=== PATIENT | male | born 1990 | race Hispanic/Latino ===

== ENCOUNTER 2016-10-24 18:54 | Emergency (ER) ==
[~2016-10-24] VITALS: Ht 177.8 cm; Wt 83.5 kg
[2016-10-24 18:54] VITALS: BP 145/76
== END 2016-10-24 19:54 | disposition left against medical advice (07) ==
LOC: M ED 18:54
DX: E86.0 Dehydration (principal); Z53.29 Procedure and treatment not carried out because of patient's decision for other reasons

== ENCOUNTER → 2016-12-11 | Outpatient (REF) | payer SELFPAY ==
[2016-12-11 18:25] LABS: IMMOTILITY 25 %; NON PROGRESSIVE MOTILITY (c) 13 %; PROGRESSIVE MOTILITY (a) 62 % (>=32); TOTAL MOTILITY 75 % (>=40)
[2016-12-11 18:26] LABS: % NORMAL FORMS 16 % (>=4); SPERM# 84.1 M/Ejac (>=39); TOTAL FUNCTIONAL 17.3 M/Ejac.; TOTAL PROGRESSIVE SPERM 52.1 M/Ejac.
== END ==
LOC: M LAB REF 17:52
PROVIDERS: ATTEND Physician Assistant Medical
DX: N46.9 Male infertility, unspecified (principal)

== ENCOUNTER 2017-10-06 19:55 | Emergency (ER) | payer OTHER, SELFPAY ==
[2017-10-06] MEDS: AMOXICILLIN 500 MG CAP PO (21:04)
== END 2017-10-06 21:07 | disposition home or self-care (01) ==
LOC: M ED 19:55
DX: J02.0 Streptococcal pharyngitis (principal)
CPT/HCPCS: 87880

== ENCOUNTER 2018-01-23 22:28 | Emergency (ER) | payer OTHER ==
[2018-01-23] MEDS: IBUPROFEN 600 MG TAB PO (22:52)
== END 2018-01-23 23:34 | disposition home or self-care (01) ==
LOC: M ED 22:28
DX: S86.912A Strain of unspecified muscle(s) and tendon(s) at lower leg level, left leg, initial encounter (principal); X50.9XXA Other and unspecified overexertion or strenuous movements or postures, initial encounter; Y92.59 Other trade areas as the place of occurrence of the external cause; Y99.0 Civilian activity done for income or pay; Z79.899 Other long term (current) drug therapy
CPT/HCPCS: 73564

== ENCOUNTER 2018-07-22 19:43 | Emergency (ER) | payer OTHER ==
[~2018-07-22] VITALS: Ht 175.3 cm; Wt 84.1 kg
[~2018-07-22 19:43] MED LIST: ACE65ERTAB PO; ADDE20CA3 PO; AMOX500C PO; IBUP-1022 PO; THERPAK PO
[2018-07-22 19:44] VITALS: BP 138/70
[2018-07-22] MEDS ORDERED: GI COCKTAIL 50ML BTL(HYOSCYAMINE/MAALOX/LIDOCAINE VISCOUS)(1:3:1) PO ONE (20:45)
[2018-07-22] MEDS ORDERED: PROT1TAB2 PO (21:55)
[2018-07-22] MEDS ORDERED: CARA1TAB6 PO (21:55)
== END 2018-07-22 22:14 | disposition home or self-care (01) ==
LOC: M ED 19:43
DX: K21.0 Gastro-esophageal reflux disease with esophagitis (principal); R19.7 Diarrhea, unspecified; Z87.19 Personal history of other diseases of the digestive system; F90.9 Attention-deficit hyperactivity disorder, unspecified type; Z79.899 Other long term (current) drug therapy

== ENCOUNTER 2018-08-05 12:15 | Day surgery (SDC) | payer OTHER ==
[~2018-08-05] VITALS: Ht 175.3 cm; Wt 82.1 kg
[~2018-08-05 12:15] MED LIST changes: +CARA1TAB6 PO; +PROT1TAB2 PO
[2018-08-05] MEDS ORDERED: NS 1,000 ML IV ONE (13:00)
[2018-08-05] MEDS ORDERED: PROPOFOL 200 MG/20 ML VIAL As Ordered ONE (13:29)
[2018-08-05] MEDS ORDERED: LIDOCAINE 2% INJ 100 MG/5 ML SDV (FOR ANES.) As Ordered ONE (13:29)
--- NOTE | 2018-08-05 14:04 | ROOR ---
Patient Name: Phill Mehta Procedure Date: 08/05/2018 1:22 PM Date of : 1990 Age: 27 Room: [facility] Gender: Male Note Status: Finalized Procedure: Upper GI endoscopy Indications: Epigastric abdominal pain, Dyspepsia, Dysphagia Providers: Moises Barreto MD Referring MD: ANDRIA CARDENAS MD Requesting Provider: Medicines: Monitored Anesthesia Care Complications: No immediate complications. Procedure: Pre-Anesthesia Assessment: - Prior to the procedure, a History and Physical was performed, and patient medications and allergies were reviewed. The patient is competent. The risks and benefits of the procedure and the sedation options and risks were discussed with the patient. All questions were answered and informed consent was obtained. Patient identification and proposed procedure were verified by the physician, the nurse and the anesthesiologist in the procedure room. Mental Status Examination: alert and oriented. Airway Examination: normal oropharyngeal airway and neck mobility. Respiratory Examination: clear to auscultation. CV Examination: normal. Prophylactic Antibiotics: The patient does not require prophylactic antibiotics. Prior Anticoagulants: The patient has taken no previous anticoagulant or antiplatelet agents. ASA Grade Assessment: I - A normal, healthy patient. After reviewing the risks and benefits, the patient was deemed in satisfactory condition to undergo the procedure. The anesthesia plan was to use monitored anesthesia care (MAC). Immediately prior to administration of medications, the patient was re-assessed for adequacy to receive sedatives. The heart rate, respiratory rate, oxygen saturations, blood pressure, adequacy of pulmonary ventilation, and response to care were monitored throughout the procedure. The physical status of the patient was re-assessed after the procedure. The Endoscope was introduced through the mouth, and advanced to the second part of duodenum. The upper GI endoscopy was accomplished without difficulty. The patient tolerated the procedure well. Findings: No endoscopic abnormality was evident in the esophagus to explain the patient's complaint of dysphagia. Biopsies were obtained from the proximal and distal esophagus with cold forceps for histology of suspected eosinophilic esophagitis. Verification of patient identification for the specimen was done by the physician and nurse using the patient's name, date and medical record number. Estimated blood loss was minimal. The Z-line was irregular and was found at the gastroesophageal junction. Patchy mild inflammation characterized by erythema, friability and granularity was found in the gastric body and in the gastric antrum. Biopsies were taken with a cold forceps for Helicobacter pylori testing. No gross lesions were noted in the duodenal bulb, in the second portion of the duodenum and in the third portion of the duodenum. Biopsies for histology were taken with a cold forceps for evaluation of celiac disease. Impression: - No endoscopic esophageal abnormality to explain patient's dysphagia. Biopsied. - Z-line irregular, at the gastroesophageal junction. - Gastritis. Biopsied. - No gross lesions in the duodenal bulb, in the second portion of the duodenum and in the third portion of the duodenum. Biopsied. Recommendation: - Patient has a contact number available for emergencies. The signs and symptoms of potential delayed complications were discussed with the patient. Return to normal activities tomorrow. Written discharge instructions were provided to the patient. - Resume previous diet. - Continue present medications. - Await pathology results. - Follow an antireflux regimen. - Return to GI clinic in [facility] (address [address], [address], [place], [facility]) in 4 -- 6 weeks. Please call GI clinic @ [phone] for apppointment date and time. - Return to primary care physician. Moises Barreto MD Moises Barreto MD 08/05/2018 2:04:23 PM Electronically signed by Moises Barreto MD Number of Addenda: 0 Note Initiated On: 08/05/2018 1:22 PM Estimated Blood Loss: Estimated blood loss was minimal.
--- NOTE | 2018-08-05 14:14 | ROOR ---
Patient Name: Phill Mehta Procedure Date: 08/05/2018 1:23 PM Date of : 1990 Age: 27 Room: [facility] Gender: Male Note Status: Finalized Procedure: Colonoscopy Indications: Chronic diarrhea Providers: Moises Brareto MD Referring MD: ANDRIA CARDENAS MD Requesting Provider: Medicines: Monitored Anesthesia Care Complications: No immediate complications. Procedure: Pre-Anesthesia Assessment: - Prior to the procedure, a History and Physical was performed, and patient medications and allergies were reviewed. The patient is competent. The risks and benefits of the procedure and the sedation options and risks were discussed with the patient. All questions were answered and informed consent was obtained. Patient identification and proposed procedure were verified by the physician, the nurse and the anesthesiologist in the procedure room. Mental Status Examination: alert and oriented. Airway Examination: normal oropharyngeal airway and neck mobility. Respiratory Examination: clear to auscultation. CV Examination: normal. Prophylactic Antibiotics: The patient does not require prophylactic antibiotics. Prior Anticoagulants: The patient has taken no previous anticoagulant or antiplatelet agents. ASA Grade Assessment: I - A normal, healthy patient. After reviewing the risks and benefits, the patient was deemed in satisfactory condition to undergo the procedure. The anesthesia plan was to use monitored anesthesia care (MAC). Immediately prior to administration of medications, the patient was re-assessed for adequacy to receive sedatives. The heart rate, respiratory rate, oxygen saturations, blood pressure, adequacy of pulmonary ventilation, and response to care were monitored throughout the procedure. The physical status of the patient was re-assessed after the procedure. The Colonoscope was introduced through the anus and advanced to the terminal ileum, with identification of the appendiceal orifice and IC valve. The colonoscopy was performed without difficulty. The patient tolerated the procedure well. The quality of the bowel preparation was good. The terminal ileum, ileocecal valve, appendiceal orifice, and rectum were photographed. Scope insertion time was 3 minutes. Scope withdrawal time was 7 minutes. The total duration of the procedure was 10 minutes. Findings: The perianal and digital rectal examinations were normal. The terminal ileum appeared normal. A 5 mm polyp was found in the transverse colon. The polyp was sessile. The polyp was removed with a cold biopsy forceps. Resection and retrieval were complete. Verification of patient identification for the specimen was done by the physician and nurse using the patient's name, date and medical record number. Estimated blood loss was minimal. Normal mucosa was found in the entire colon. Biopsies for histology were taken with a cold forceps from the right colon, left colon and rectosigmoid colon for evaluation of microscopic colitis. Non-bleeding external and internal hemorrhoids were found during retroflexion. The hemorrhoids were small. Impression: - The examined portion of the ileum was normal. - One 5 mm polyp in the transverse colon, removed with a cold biopsy forceps. Resected and retrieved. - Normal mucosa in the entire examined colon. Biopsied. - Non-bleeding external and internal hemorrhoids. Recommendation: - Patient has a contact number available for emergencies. The signs and symptoms of potential delayed complications were discussed with the patient. Return to normal activities tomorrow. Written discharge instructions were provided to the patient. - High fiber diet. - Continue present medications. - Await pathology results. - Repeat colonoscopy in 5-10 years for surveillance based on pathology results. - Return to GI clinic in [facility] (address [address], [place], [facility]) in 4 -- 6 weeks. Please call GI clinic @ [phone] for apppointment date and time. - Return to primary care physician. Moises Barreto MD Moises Barreto MD 08/05/2018 2:14:11 PM Electronically signed by Moises Barreto MD Number of Addenda: 0 Note Initiated On: 08/05/2018 1:23 PM Estimated Blood Loss: Estimated blood loss was minimal.
[2018-08-05 14:30] VITALS: BP 126/61
== END 2018-08-05 14:42 | disposition home or self-care (01) ==
LOC: M OPP 12:15
PROVIDERS: ATTEND Internal Medicine Gastroenterology
DX: K63.5 Polyp of colon (principal); K64.8 Other hemorrhoids; K22.8 Other specified diseases of esophagus; K29.70 Gastritis, unspecified, without bleeding; R19.7 Diarrhea, unspecified; R10.13 Epigastric pain; R13.10 Dysphagia, unspecified

== ENCOUNTER → 2018-09-16 | Outpatient (REF) | payer OTHER | LOC: M SFHCLERA 20:05 | PROVIDERS: ATTEND Physician Assistant | DX: J02.9 Acute pharyngitis, unspecified (principal) ==

== ENCOUNTER 2020-10-29 00:51 | Emergency (ER) | payer OTHER ==
[~2020-10-29] VITALS: Ht 175.3 cm; Wt 81.8 kg
[2020-10-29 00:52] VITALS: BP 140/81
[2020-10-29] MEDS ORDERED: LEXA1TAB PO (01:01)
[2021-04-12] MEDS ORDERED: AMPH1CAP15 PO (13:17)
[2021-04-12] MEDS ORDERED: LEXA1TAB2 PO (13:17)
[2021-04-12] MEDS ORDERED: ADDE15CA3 PO (13:22)
[2021-04-12] MEDS ORDERED: [UNRECOGNIZED DRUG - CODE] PO (13:22)
== END 2020-10-29 01:45 | disposition left against medical advice (07) ==
LOC: M ED 00:51
DX: Z53.21 Procedure and treatment not carried out due to patient leaving prior to being seen by health care provider (principal)

== ENCOUNTER 2021-02-22 12:03 | Emergency (ER) | payer OTHER ==
[~2021-02-22] VITALS: Ht 175.3 cm; Wt 88.3 kg
[~2021-02-22 12:03] MED LIST changes: +LEXA1TAB PO
[2021-02-22] MEDS ORDERED: MODA100T13 PO (13:17)
[2021-02-22 17:35] LABS: BASO % 0.3 % (0.0-1.0); EOS # 0.1 10^3/uL (0.0-0.5); EOS % 1.3 % (0.0-3.0); HEMATOCRIT 47.9 % (42.0-52.0); HEMOGLOBIN 16.1 g/dl (13.5-17.5); LYMPH # 1.7 10^3/uL (1.5-5.0); LYMPH % 27.9 % (24.0-44.0); MEAN CORPUSCULAR HEMOGLOBIN 30.6 pg (27.0-33.0); MEAN CORPUSCULAR HGB CONC 33.6 g/dl (32.0-36.5); MEAN CORPUSCULAR VOLUME 90.9 fl (80.0-96.0); MONO # 0.5 10^3/uL (0.0-0.8); MONO % 7.7 % (2.0-8.0); NEUTROPHILS # 3.7 10^3/uL (1.5-8.5); NEUTROPHILS % 62.6 % (36.0-66.0); PLATELET COUNT, AUTOMATED 269 10^3/uL (150-450); RED BLOOD COUNT 5.27 10^6/uL (4.30-6.10)
[2021-02-22] MEDS ORDERED: ISOVUE-370 76% 100ML VIAL As Ordered ONE (17:44)
[2021-02-22 17:58] LABS: ALBUMIN 4.1 GM/DL (3.2-5.2); BILIRUBIN,DIRECT 0.2 MG/DL (0.0-0.2); BILIRUBIN,TOTAL 0.5 MG/DL (0.2-1.0); TOTAL PROTEIN 7.6 GM/DL (6.4-8.2)
[2021-02-22 18:09] LABS: RSV AMPLIFICATION NEGATIVE (NEGATIVE)
[2021-02-22 19:52] VITALS: BP 136/80
[2021-02-22] MEDS ORDERED: PYLE1CAP PO (19:55)
[2021-04-12] MEDS ORDERED: AMPH1CAP15 PO (13:17)
[2021-04-12] MEDS ORDERED: LEXA1TAB2 PO (13:17)
[2021-04-12] MEDS ORDERED: [UNRECOGNIZED DRUG - CODE] PO (13:22)
[2021-04-12] MEDS ORDERED: ADDE15CA3 PO (13:22)
== END 2021-02-22 20:15 | disposition home or self-care (01) ==
LOC: M ED 12:03
DX: R10.31 Right lower quadrant pain (principal); R06.02 Shortness of breath; K76.0 Fatty (change of) liver, not elsewhere classified; Z86.19 Personal history of other infectious and parasitic diseases; R94.5 Abnormal results of liver function studies; Z79.899 Other long term (current) drug therapy
CPT/HCPCS: 36415; 71046; 74177; 80047; 80076; 81001; 83605; 83690; 84484; 85025; 87631; 93005; 99284; Q9967

== ENCOUNTER 2021-04-18 22:14 | Emergency (ER) | payer OTHER ==
[~2021-04-18] VITALS: Ht 175.3 cm; Wt 87.3 kg
[2021-04-18 22:14] VITALS: BP 126/73
[~2021-04-18 22:14] MED LIST changes: +ADDE15CA3 PO; +AMPH1CAP15 PO; +LEXA1TAB2 PO; +MODA100T13 PO; +PYLE1CAP PO; +[UNRECOGNIZED DRUG - CODE] PO
== END 2021-04-19 00:09 | disposition left against medical advice (07) ==
LOC: M ED 22:14
DX: Z53.21 Procedure and treatment not carried out due to patient leaving prior to being seen by health care provider (principal)

== ENCOUNTER 2021-04-22 11:59 | Day surgery (SDC) | payer OTHER ==
[~2021-04-22] VITALS: Ht 175.3 cm; Wt 86.2 kg
[~2021-04-22 11:59] MED LIST changes: +NS 1,000 ML IV ONE
[2021-04-22] MEDS ORDERED: LIDOCAINE VISCOUS 2% SOLN 15ML UDC As Ordered ONE (14:36)
[2021-04-22] MEDS ORDERED: LIDOCAINE 2% 100MG/5ML SDV (FOR ANES.) As Ordered ONE (14:48)
[2021-04-22] MEDS ORDERED: propofoL 200 MG/20 ML VIAL As Ordered ONE (14:48)
[2021-04-22 15:06] VITALS: BP 104/59
== END 2021-04-22 15:12 | disposition home or self-care (01) ==
LOC: M OPP 11:59
PROVIDERS: ATTEND Internal Medicine Gastroenterology
DX: K29.70 Gastritis, unspecified, without bleeding (principal); R12 Heartburn; Z79.899 Other long term (current) drug therapy

== ENCOUNTER 2021-06-07 06:27 | Emergency (ER) | payer OTHER ==
[~2021-06-07] VITALS: Ht 175.3 cm; Wt 86.4 kg
[~2021-06-07 06:27] MED LIST changes: -NS 1,000 ML IV ONE
[2021-06-07] MEDS ORDERED: LEXA1TAB2 PO (06:40)
[2021-06-07] MEDS ORDERED: METOCLOPRAMIDE INJ 10MG/2ML VIAL (J2765 PER 1) IV ONE (07:25)
[2021-06-07] MEDS ORDERED: NS 1,000 ML IV ONE (07:25)
[2021-06-07 08:05] LABS: BASO % 0.3 % (0.0-1.0); EOS # 0.1 10^3/uL (0.0-0.5); EOS % 1.6 % (0.0-3.0); HEMATOCRIT 45.1 % (42.0-52.0); HEMOGLOBIN 15.2 g/dl (13.5-17.5); LYMPH # 1.8 10^3/uL (1.5-5.0); LYMPH % 28.7 % (24.0-44.0); MEAN CORPUSCULAR HEMOGLOBIN 30.7 pg (27.0-33.0); MEAN CORPUSCULAR HGB CONC 33.7 g/dl (32.0-36.5); MEAN CORPUSCULAR VOLUME 91.1 fl (80.0-96.0); MONO # 0.6 10^3/uL (0.0-0.8); MONO % 9.6 % (2.0-8.0); NEUTROPHILS # 3.7 10^3/uL (1.5-8.5); NEUTROPHILS % 59.6 % (36.0-66.0); PLATELET COUNT, AUTOMATED 272 10^3/uL (150-450); RED BLOOD COUNT 4.95 10^6/uL (4.30-6.10); WHITE BLOOD COUNT 6.1 10^3/uL (4.0-10.0)
[2021-06-07 08:36] LABS: ALBUMIN 4.1 GM/DL (3.2-5.2); ALT/SGPT 66 U/L (12-78); BILIRUBIN,DIRECT 0.1 MG/DL (0.0-0.2); BILIRUBIN,TOTAL 0.6 MG/DL (0.2-1.0); BLOOD UREA NITROGEN 9 MG/DL (7-18); CALCIUM LEVEL 9.5 MG/DL (8.5-10.1); CARBON DIOXIDE LEVEL 30 MEQ/L (21-32); CHLORIDE LEVEL 106 MEQ/L (98-107); CREATININE FOR GFR 0.96 MG/DL (0.70-1.30); GLOMERULAR FILTRATION RATE > 60.0 (>60); GLUCOSE, FASTING 82 MG/DL (70-100); LIPASE 103 U/L (73-393); POTASSIUM SERUM 4.5 MEQ/L (3.5-5.1); SODIUM LEVEL 140 MEQ/L (136-145); TOTAL PROTEIN 7.2 GM/DL (6.4-8.2)
[2021-06-07 10:18] VITALS: BP 125/71
== END 2021-06-07 10:19 | disposition home or self-care (01) ==
LOC: M ED 06:27
DX: R10.12 Left upper quadrant pain (principal); R19.7 Diarrhea, unspecified; F90.9 Attention-deficit hyperactivity disorder, unspecified type; G47.419 Narcolepsy without cataplexy; Z86.16 Personal history of COVID-19; Z79.899 Other long term (current) drug therapy
CPT/HCPCS: 80048; 80076; 83690; 85025; 96361; 96374; 99284; J2765

== ENCOUNTER 2021-08-16 21:24 | Emergency (ER) | payer OTHER ==
[~2021-08-16] VITALS: Ht 175.3 cm; Wt 91.2 kg
[2021-08-16 21:25] VITALS: BP 124/69
== END 2021-08-16 21:30 | disposition left against medical advice (07) ==
LOC: M ED 21:24
DX: Z53.21 Procedure and treatment not carried out due to patient leaving prior to being seen by health care provider (principal)